=== PATIENT | male | born 1950 ===

== ENCOUNTER 2021-03-14 07:31 | Emergency (ER) | payer MEDICARE, OTHER, SELFPAY ==
[2021-03-14 07:44] VITALS: BP 149/78; PULSE 75; RESP 18; TEMP 37.1; O2SAT 97; BMI 36.9
--- NOTE | 2021-03-14 07:56 | ED.FEVER ---
HPI - Fever General Chief Complaint: Fever Stated Complaint: fever for 2 days, worried he has Covid Time Seen by Provider: 03/14/21 07:56 Source: patient Mode of arrival: Ambulatory Limitations: no limitations History of Present Illness HPI Narrative: This is a 70-year-old male who comes emergency department with complaint of fever for 2 days. Patient states he is currently visiting from [place], he is traveling with family. Patient states that 2 days ago he was at a local restaurant facility on [facility]. Patient starts he started to have fevers and chills and even rigors, he had nausea and vomiting initially. Has not had any additional since. Patient denies any headache no neck pain, no chest pain or shortness of breath. He is not he had any cold cough or congestion. Patient has not had any numbness, tingling or weakness. He denies any abdominal pain. He has not any persistent nausea or vomiting. No diarrhea, no constipation or black or bloody stools. Patient has not had any urinary symptoms, no frequency dysuria urgency. He noted his skin has felt a little itchy recently. Patient does have a cardiac history. He has had carotid endarterectomy and CABG. Patient's main concern today is that he is planning to travel and did not want be COVID positive and flying on a plane and exposing others. Review of Systems Review of Systems ROS Unobtainable: All systems reviewed & are unremarkable except as noted in HPI and below Patient History Social History Smoking Status: Never smoker Smoking Status: Never smoker Exam Narrative Exam Narrative: GEN: well nourished, well appearing male, alert and oriented x 3, patient appears to be in mild distress. Patient is seated comfortably in a chair. HEENT: Atraumatic, pupils are equal round reactive to light, extraocular movements are intact, nares are clear. Throat is clear without any exudates, erythema, tonsillar enlargement or uvular deviation HEART: Regular rate and rhythm without murmur, clicks, rubs. No carotid bruits, pulses are equal in upper and lower extremities LUNGS:Lungs clear to auscultation, no wheezes, rales, crackles, chest moves symmetrically ABD:bowel sounds normal, soft, non-tender, no guarding, rebound, rigidity, no masses noted, no hepatosplenomegaly :No CVA tenderness MSCL: full range of motion, normal gait NEURO:CN 2-12 intact, sensation normal SKIN: Patient does not have any petechiae, lesions or lacerations noted. Initial Vital Signs Initial Vital Signs: Vital Signs Temperature 98.8 F 03/14/21 07:44 Pulse Rate 75 03/14/21 07:44 Respiratory Rate 18 03/14/21 07:44 Blood Pressure 149/78 H 03/14/21 07:44 Pulse Oximetry 97 03/14/21 07:44 Course Orders Ordered: ED Orders 03/14/21 07:48 COVID19 -Nasal swab/Pre-Proc Stat Vital Signs Vital signs: Vital Signs - 8 hr 03/14/21 07:44 Temperature 98.8 F Pulse Rate 75 Respiratory Rate 18 Blood Pressure 149/78 H Pulse Oximetry 97 MDM - Fever Lab Data Labs: Lab Results 03/14/21 Range/Units 07:55 SARS-CoV-2 (PCR) Negative (Negative) MDM Narrative Medical decision making narrative: This is a pleasant 70-year-old male who comes to the emergency department with 2 days of fever, patient initially had some nausea and vomiting but has not had any additional. Patient is requesting COVID testing. This was obtained and is negative. Patient does not wish to have any further workup at this time. Discharge Plan Departure Patient Disposition: Home Clinical Impression: Fever Instructions: DI for Fever (Symptom) -- Adult Activity Restrictions/Additional Instructions: Your COVID testing here today is negative. This test does not completely rule out COVID but certainly makes it much less likely to be the cause of your symptoms. Please return here or the nearest emergency department if her having worsening symptoms, severe headaches, neck pain, new chest pain or shortness of breath, lightheadedness or passing out, persistent vomiting, black or bloody stools or abdominal pain, new swelling of your extremities, new rashes or other new or concerning symptoms.
[2021-03-14 08:20] LABS: COVID19 -Nasal RAPID Negative (Negative)
== END 2021-03-14 08:28 | disposition home or self-care (01) ==
PROVIDERS: Emergency Provider Emergency Medicine
DX: R50.9 Fever, unspecified (principal); R11.2 Nausea with vomiting, unspecified; Z20.822 Contact with and (suspected) exposure to COVID-19
CPT/HCPCS: 87635; 99281; 99282; C9803